=== PATIENT | female | born 1965 ===

== ENCOUNTER 2020-03-20 09:00 | Outpatient (CLI) | payer BC | END 2020-03-20 09:01 | disposition home or self-care (01) | LOC: SLR 09:00 | PROVIDERS: ATTEND Otolaryngology | DX: G47.33 Obstructive sleep apnea (adult) (pediatric) (principal); R40.0 Somnolence; E66.9 Obesity, unspecified | CPT/HCPCS: G0399 ==

== ENCOUNTER 2020-03-26 11:00 | Outpatient (CLI) | payer BC | END 2020-03-26 11:01 | disposition home or self-care (01) | LOC: SLR 11:00 → EDBD 11:00 → SLR 11:01 | PROVIDERS: ATTEND Otolaryngology | DX: G47.33 Obstructive sleep apnea (adult) (pediatric) (principal); E66.9 Obesity, unspecified; R06.83 Snoring; R40.0 Somnolence | CPT/HCPCS: 95811 ==